=== PATIENT | male | born 1975 | race Two or more races ===

== ENCOUNTER 2020-10-15 22:41 | Emergency (ER) | payer SELFPAY ==
[~2020-10-15] VITALS: Ht 175.3 cm; Wt 86.2 kg
--- NOTE | 2020-10-15 23:00 | NUR ---
PATIENT CAME TO THE ER BED 14 BIBRA FROM THE STREETS C/O ETOH. PER RA REPORT, PATIENT WAS FOUND LYING ON THE STREETS. ADMITS TO DRINKING ALL DAY. PATIENT IS AAOX3. PATIENT IS COOPERATIVE. PATIENT IS AMBULATORY. NO SOB. BREATHING EVENLY AND UNLABORED ON ROOM AIR. CONNECTED TO THE MONITOR.
[2020-10-15 23:33] LABS: BASOPHILS % (AUTO) 0.3 % (0.0-2.0); EOSINOPHILS % (AUTO) 1.5 % (0.0-6.0); HEMATOCRIT 49 % (39-51); HEMOGLOBIN 16.8 g/dL (13.5-17.5); LYMPHOCYTES # (AUTO) 3.1 /CMM (0.8-4.8); LYMPHOCYTES % (AUTO) 37.7 % (20.0-44.0); MEAN CORPUSCULAR HGB CONC 34 g/dl (31.0-36.0); MEAN CORPUSCULAR VOLUME 101 fL (80-96); MONOCYTES # (AUTO) 1.3 /CMM (0.1-1.30); MONOCYTES % (AUTO) 16.3 % (2.0-12.0); NEUTROPHILS # (AUTO) 3.6 /CMM (1.8-8.9); NEUTROPHILS % (AUTO) 44.2 % (43.0-81.0); PLATELET COUNT (AUTO) 204 /CMM (150-450); RED BLOOD CELL COUNT(AUTO) 4.87 MIL/uL (4.5-6.0); WHITE BLOOD COUNT (AUTO) 8.2 K/uL (4.3-11.0)
[2020-10-15 23:40] LABS: CALCIUM, SERUM 8.4 mg/dL (8.5-10.1); CREATININE 0.6 mg/dL (0.6-1.3)
[2020-10-15 23:48] LABS: ALBUMIN 3.6 g/dL (3.4-5.0); BILIRUBIN,DIRECT 0.2 mg/dL (0.0-0.2); BILIRUBIN,TOTAL 0.4 mg/dL (0.2-1.0); TOTAL PROTEIN, SERUM 8.6 g/dL (6.4-8.2)
--- NOTE | 2020-10-16 00:35 | NUR ---
PATIENT IS SLEEPING. EASILY AROUSABLE THROUGH VERBAL STIMULI. CONNECTED TO THE MONITOR. SITTER IS AT BEDSIDE. SIDE RAILS ARE UP FOR SAFETY. CALL LIGHT IS WITHIN REACH .WILL MONITOR PATIENT CLOSELY.
[2020-10-16 00:36] VITALS: BP 144/84
[2020-10-16 01:29] LABS: LYMPHOCYTES % (MANUAL) 39 % (16-48); MONOCYTES % (MANUAL) 14 % (0-11.0); NEUTROPHILS % (MANUAL) 47 (42-76)
--- NOTE | 2020-10-16 02:39 | NUR ---
PATIENT STATES, "I GOTTA BE OUT OF HERE TO GO SEE SALLY (BOYFRIEND)". PATIENT AMBULATORY. AAOX3. PATIENT LEFT THE FACILITY. NOTIFIED.
== END 2020-10-16 02:40 | disposition left against medical advice (07) ==
LOC: EDBD 22:43 → ER 22:43
DX: F10.129 Alcohol abuse with intoxication, unspecified (principal); Y90.8 Blood alcohol level of 240 mg/100 ml or more
CPT/HCPCS: 36415; 80048-TC; 80076-TC; 85025-TC; G0480